=== PATIENT | male | born 1955 | race Caucasian/White ===

== ENCOUNTER → 2017-07-07 | Outpatient (CLI) | payer OTHER ==
[~2017-07-07] MED LIST: CHOL400T55 PO; HYDR25CA84 PO; LACT1CAP12 PO; LAM25 PO; LIS20 PO; LITH600C6 PO; MELA10TA2 PO; MIRT-22 PO; MULT1CAP59 PO; OLAN10TA19 PO; OLAN5TAB27 PO; OMEG-11 PO; QUET100T29 PO; QUET50TA21 PO; TRAZ50 PO
[2017-07-07 12:30] LABS: PLATELET COUNT, AUTOMATED 211 K/uL (150-450)
[2017-07-07 13:18] LABS: LDL CHOLESTEROL 52 mg/dl
== END ==
LOC: LAB 11:56
PROVIDERS: ATTEND Family Medicine
DX: F31.9 Bipolar disorder, unspecified (principal); Z79.899 Other long term (current) drug therapy; R73.01 Impaired fasting glucose
CPT/HCPCS: 36415; 80178; 82040; 82247; 82310; 82374; 82435; 82465; 82565; 82947; 83036; 83718; 84075; 84132; 84155; 84295; 84443; 84450; 84460; 84478; 84520; 85025

== ENCOUNTER → 2017-10-22 | Outpatient (CLI) | payer OTHER ==
[~2017-10-22] MED LIST changes: +FLUT16SP19 NS; +PRAZ1CAP26 PO; +ZOLP-1 PO
[2017-10-22 10:24] LABS: PLATELET COUNT, AUTOMATED 186 K/uL (150-450)
== END ==
LOC: LAB 09:59
PROVIDERS: ATTEND Family Medicine
DX: G31.83 Neurocognitive disorder with Lewy bodies (principal); Z79.899 Other long term (current) drug therapy
CPT/HCPCS: 36415; 80178; 82040; 82247; 82310; 82374; 82435; 82565; 82947; 84075; 84132; 84155; 84295; 84443; 84450; 84460; 84520; 85025

== ENCOUNTER 2017-12-06 14:25 | Emergency (ER) | payer OTHER ==
--- NOTE | 2017-12-06 14:35 | ER Report ---
History and Physical Time Seen By MD: 14:35 Hx. of Stated Complaint: PATIENTS REPORTS THAT HE WAS DIAGNOSED WITH ALZHEIMERS DISEASE IN FEBRUARY 2017. 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 He was sent to the emergency department from urgent care. He presented to urgent care with his who stated that he has had a change in mental status for the past 2 days. She states that he has been increasingly agitated. He has no complaints. He has been perseverating however on his penis. He denies any pain in his penis or testicles. No fever or chills. He has had some medication changes over the past few months. The patient himself has no complaints. Both the patient and his deny any trauma. Remainder of the 14 system rev: Yes Allergies: Coded Allergies: cephalexin (Unverified Allergy, Unknown, rash on legs / fever, 06/24/17) Home Meds Active Scripts Olanzapine (ZYPREXA ZYDIS) 5 Mg Tab.rapdis, 5 MG PO Q1-2H Y for AGITATION for 10 Days, #30 Give 1 tab every 1-2 hours up to 20mg (4 tabs) for aggitation Prov:FLO FLOWER MD 12/06/17 Olanzapine (OLANZAPINE) 5 Mg Tablet, 1 TAB PO QDAY for Anxiety for 90 Days, #90 TAB 4 Refills Prov:ABIMBOLA BAILEY MD 12/02/17 Prazosin Hcl (PRAZOSIN HCL) 1 Mg Capsule, 1-3 MG PO BID for 90 Days, #360 CAPSULE 4 Refills Prov:ABIMBOLA BAILEY MD 12/02/17 [place] Carbonate (LITHIUM CARBONATE) 600 Mg Capsule, 1 CAP PO DAILY for 90 Days , #90 TAB 1 Refill Prov:ABIMBOLA BAILEY MD 11/13/17 Quetiapine Fumarate (SEROQUEL) 100 Mg Tablet, 1-1.5 TAB PO BID for 60 Days, # 150 TAB 3 Refills Prov:ABIMBOLA BAILEY MD 09/30/17 Zolpidem Tartrate (AMBIEN) 5 Mg Tablet, 1 TAB PO QHS Y for SLEEP for 30 Days, # 30 TAB Prov:ABIMBOLA BAILEY MD 09/05/17 Reported Medications [place]-3 Fatty Acids/Fish Oil (FISH OIL 1,000 MG CAPSULE) 1 Each Capsule, 1 EACH PO BID, CAPSULE 07/07/17 Melatonin (MELATONIN) 10 Mg Tablet, 1 TAB PO HS 07/07/17 Multivitamin (MULTIVITAMINS) 1 Each Capsule, 1 CAP PO DAILY 06/24/17 Cholecalciferol (Vitamin D3) (VITAMIN D) 400 Unit Tablet, 1 CAP PO DAILY 06/24/17 Lactobacillus Combo No.11 (PROBIOTIC) 1 Each Cap.sprink, 1 CAPSULE PO BID 06/24/17 Reviewed Nurses Notes: Yes Old Medical Records Reviewed: Yes Hx Smoking: No Smoking Status: Current: Every Day Smoker Hx Substance Use Disorder: No Hx Alcohol Use: Yes Constitutional Vital Sign - Last 24 Hours 12/06/17 12/06/17 14:30 17:11 Temp 98.5 Pulse 83 71 Resp 20 B/P (MAP) 163/97 131/77 (95) Pulse Ox 92 O2 Delivery Room Air Physical Exam General Appearance: The patient is alert, has no immediate need for airway protection and no current signs of toxicity. Eyes: Pupils equal and round no injection. Respiratory: Chest is non tender, lungs are clear to auscultation. Cardiac: regular rate and rhythm Gastrointestinal: Abdomen is soft and non tender, no masses, bowel sounds normal. Neck: Neck is supple and non tender. Extremities have full range of motion and are non tender. Skin: No rashes or lesions. DIFFERENTIAL DIAGNOSIS: After history and physical exam differential diagnosis was considered for infection, intracranial hemorrhage, lithium toxicity, progression of disease Medical Decision Making Data Points Result Diagram: 12/06/17 1456 12/06/17 1456 Laboratory Hematology Test 12/06/17 14:43 12/06/17 14:56 Urine Color Straw Urine Clarity Clear Urine pH 7.0 pH (4.8-9.5) Urine Specific [place] 1.006 Urine Protein Negative mg/dL (NEGATIVE) Urine Glucose (UA) Negative mg/dL (NEGATIVE) Urine Ketones Negative mg/dL (NEGATIVE) Urine Blood Negative (NEGATIVE) Urine Nitrite Negative (NEGATIVE) Urine Bilirubin Negative (NEGATIVE) Urine Urobilinogen Negative mg/dL (0.2-1.9) Urine Leukocyte Esterase Negative (NEGATIVE) Urine RBC None /HPF (0-2/HPF) Urine WBC None /HPF (0-5/HPF) Urine Squamous Epithelial Cells None /LPF (NONE-FEW) Urine Bacteria Negative /HPF (NONE-FEW) Urine Mucus None /HPF (NONE-FEW) Red Blood Count 5.22 M/uL (4.00-5.60) Mean Corpuscular Volume 91.5 fL (80.0-96.0) Mean Corpuscular Hemoglobin 31.8 pg (26.0-33.0) Mean Corpuscular Hemoglobin Concent 34.7 g/dL (32.0-36.0) Red Cell Distribution Width 13.7 % (11.5-14.5) Mean Platelet Volume 7.7 fL (7.2-11.1) Neutrophils (%) (Auto) 73.2 % (39.4-72.5) Lymphocytes (%) (Auto) 13.3 % (17.6-49.6) Monocytes (%) (Auto) 8.8 % (4.1-12.4) Eosinophils (%) (Auto) 4.4 % (0.4-6.7) Basophils (%) (Auto) 0.3 % (0.3-1.4) Nucleated RBC Relative Count (auto) 0.0 /100WBC Neutrophils # (Auto) 7.4 K/uL (2.0-7.4) Lymphocytes # (Auto) 1.3 K/uL (1.3-3.6) Monocytes # (Auto) 0.9 K/uL (0.3-1.0) Eosinophils # (Auto) 0.4 K/uL (0.0-0.5) Basophils # (Auto) 0.0 K/uL (0.0-0.1) Nucleated RBC Absolute Count (auto) 0.00 K/uL Sodium Level 141 mmol/L (137-145) Potassium Level 4.2 mmol/L (3.5-5.0) Chloride Level 101 mmol/L (98-107) Carbon Dioxide Level 27 mmol/L (22-30) Blood Urea Nitrogen 13 mg/dl (9-21) Creatinine 0.90 mg/dl (0.66-1.25) Glomerular Filtration Rate Calc > 60.0 Random Glucose 104 mg/dl (75-110) Calcium Level 9.7 mg/dl (8.4-10.2) Total Bilirubin 0.5 mg/dl (0.2-1.3) Aspartate Amino Transf (AST/SGOT) 29 U/L (0-35) Alanine Aminotransferase (ALT/SGPT) 32 U/L (0-56) Alkaline Phosphatase 52 U/L (0-126) Total Protein 8.0 g/dl (6.3-8.2) Albumin 5.0 g/dl (3.5-5.0) [place] Level 0.4 mmol/L (0.6-1.2) Chemistry Test 12/06/17 14:43 12/06/17 14:56 Urine Color Straw Urine Clarity Clear Urine pH 7.0 pH (4.8-9.5) Urine Specific [place] 1.006 Urine Protein Negative mg/dL (NEGATIVE) Urine Glucose (UA) Negative mg/dL (NEGATIVE) Urine Ketones Negative mg/dL (NEGATIVE) Urine Blood Negative (NEGATIVE) Urine Nitrite Negative (NEGATIVE) Urine Bilirubin Negative (NEGATIVE) Urine Urobilinogen Negative mg/dL (0.2-1.9) Urine Leukocyte Esterase Negative (NEGATIVE) Urine RBC None /HPF (0-2/HPF) Urine WBC None /HPF (0-5/HPF) Urine Squamous Epithelial Cells None /LPF (NONE-FEW) Urine Bacteria Negative /HPF (NONE-FEW) Urine Mucus None /HPF (NONE-FEW) White Blood Count 10.1 k/uL (4.5-11.0) Red Blood Count 5.22 M/uL (4.00-5.60) Hemoglobin 16.6 g/dL (14.0-18.0) Hematocrit 47.8 % (42.0-52.0) Mean Corpuscular Volume 91.5 fL (80.0-96.0) Mean Corpuscular Hemoglobin 31.8 pg (26.0-33.0) Mean Corpuscular Hemoglobin Concent 34.7 g/dL (32.0-36.0) Red Cell Distribution Width 13.7 % (11.5-14.5) Platelet Count 206 K/uL (150-450) Mean Platelet Volume 7.7 fL (7.2-11.1) Neutrophils (%) (Auto) 73.2 % (39.4-72.5) Lymphocytes (%) (Auto) 13.3 % (17.6-49.6) Monocytes (%) (Auto) 8.8 % (4.1-12.4) Eosinophils (%) (Auto) 4.4 % (0.4-6.7) Basophils (%) (Auto) 0.3 % (0.3-1.4) Nucleated RBC Relative Count (auto) 0.0 /100WBC Neutrophils # (Auto) 7.4 K/uL (2.0-7.4) Lymphocytes # (Auto) 1.3 K/uL (1.3-3.6) Monocytes # (Auto) 0.9 K/uL (0.3-1.0) Eosinophils # (Auto) 0.4 K/uL (0.0-0.5) Basophils # (Auto) 0.0 K/uL (0.0-0.1) Nucleated RBC Absolute Count (auto) 0.00 K/uL Glomerular Filtration Rate Calc > 60.0 Calcium Level 9.7 mg/dl (8.4-10.2) Total Bilirubin 0.5 mg/dl (0.2-1.3) Aspartate Amino Transf (AST/SGOT) 29 U/L (0-35) Alanine Aminotransferase (ALT/SGPT) 32 U/L (0-56) Alkaline Phosphatase 52 U/L (0-126) Total Protein 8.0 g/dl (6.3-8.2) Albumin 5.0 g/dl (3.5-5.0) [place] Level 0.4 mmol/L (0.6-1.2) Toxicology Test 12/06/17 14:56 [place] Level 0.4 mmol/L (0.6-1.2) Urinalysis Test 12/06/17 14:43 Urine Color Straw Urine Clarity Clear Urine pH 7.0 pH (4.8-9.5) Urine Specific [place] 1.006 Urine Protein Negative mg/dL (NEGATIVE) Urine Glucose (UA) Negative mg/dL (NEGATIVE) Urine Ketones Negative mg/dL (NEGATIVE) Urine Blood Negative (NEGATIVE) Urine Nitrite Negative (NEGATIVE) Urine Bilirubin Negative (NEGATIVE) Urine Urobilinogen Negative mg/dL (0.2-1.9) Urine Leukocyte Esterase Negative (NEGATIVE) Urine RBC None /HPF (0-2/HPF) Urine WBC None /HPF (0-5/HPF) Urine Squamous Epithelial Cells None /LPF (NONE-FEW) Urine Bacteria Negative /HPF (NONE-FEW) Urine Mucus None /HPF (NONE-FEW) ED Course/Re-evaluation ED Course 62-year-old male with known early dementia since the emergency department with 2 days of agitation and worsening of his baseline symptoms. No evidence of infection. He is otherwise a very pleasant person, however he is pacing around the emergency department and difficult to have him stay in one place. I reviewed Dr. Bailey's clinical notes. I gave an additional 10 mg of Zyprexa and 100 mg of Seroquel in the emergency department. His agitation improved only slightly after the medications. His was concerned about the negative symptoms associated with antipsychotics so I gave him a dose of Atarax to try to further help with the agitation and anxiety. I counseled the patient's to give an additional Atarax tonight before bed if needed. I also counseled her to give another 10 mg of Zyprexa in 5 mg increments tonight if needed. I will contact Dr. Bailey and ask her to follow up with him either tomorrow or Friday. Decision to Disposition Date: Dec 06, 2017 Decision to Disposition Time: 17:05 Depart Departure Latest Vital Signs Vital Signs Date Time Temp Pulse Resp B/P (MAP) Pulse Ox O2 Delivery O2 Flow Rate FiO2 12/06/17 17:11 71 131/77 (95) 12/06/17 14:30 98.5 20 92 Room Air Impression: Primary Impression: Altered mental status Condition: Improved Disposition: HOME OR SELF-CARE Referrals: ABIMBOLA BAILEY MD (PCP) New Scripts Olanzapine (ZYPREXA ZYDIS) 5 Mg Tab.rapdis 5 MG PO Q1-2H Y for AGITATION for 10 Days, #30 Give 1 tab every 1-2 hours up to 20mg (4 tabs) for aggitation Prov: FLO FLOWER MD 12/06/17 Additional Instructions: Follow the instructions on the Zyprexa prescription. For tonight's dose, you can give an additional 10 mg at 5 mg increments. If agitation persists give one 5 mg tablet and another 5 mg tablet one hour later if agitation persists. You can also give 1 25 mg Atarax tonight if needed and another one in the morning. I will speak with Dr. Bailey about follow-up on Friday. Problem Qualifiers Primary Impression: Altered mental status Altered mental status type: unspecified Qualified Codes: R41.82 - Altered mental status, unspecified FLO FLOWER MD Dec 06, 2017 14:35
[2017-12-06 15:07] LABS: PLATELET COUNT, AUTOMATED 206 K/uL (150-450)
[2017-12-06] MEDS ORDERED: QUEtiapine FUM 100 MG TAB PO ONE (15:25)
[2017-12-06] MEDS ORDERED: OLANZapine ZYDIS ODT 5MG TABDP PO ONE ×2 (15:25→16:05)
[2017-12-06] MEDS ORDERED: hydrOXYzine 25 MG TAB PO ONE (16:45)
[2017-12-06] MEDS ORDERED: hydrOXYzine 25 MG TAB TH 2 TAB/BOTTLE PO ONE (17:05)
[2017-12-06] MEDS ORDERED: OLAN5TAB26 PO (17:10)
[2017-12-06 17:11] VITALS: BP 131/77
== END 2017-12-06 17:21 | disposition home or self-care (01) ==
LOC: ER 14:38
DX: R41.82 Altered mental status, unspecified (principal); Z79.899 Other long term (current) drug therapy; F17.200 Nicotine dependence, unspecified, uncomplicated
CPT/HCPCS: 36415; 80178; 81001; 82040; 82247; 82310; 82374; 82435; 82565; 82947; 84075; 84132; 84155; 84295; 84450; 84460; 84520; 85025; 99283

== ENCOUNTER → 2018-04-01 | Outpatient (CLI) | payer OTHER ==
[~2018-04-01] MED LIST changes: +FLU60VIA41 IM; +LAMO100T52 PO; +LAMO25TA64 PO; +OLAN10TA25 PO; +OLAN5TAB26 PO; +[UNRECOGNIZED DRUG - CODE] TP
[2018-04-01 15:03] LABS: PLATELET COUNT, AUTOMATED 188 K/uL (150-450)
== END ==
LOC: LAB 14:34
PROVIDERS: ATTEND Family Medicine
DX: Z79.899 Other long term (current) drug therapy (principal)
CPT/HCPCS: 36415; 82040; 82247; 82310; 82374; 82435; 82565; 82947; 84075; 84132; 84155; 84295; 84443; 84450; 84460; 84520; 85025

== ENCOUNTER → 2018-09-24 | Outpatient (CLI) | payer OTHER ==
[~2018-09-24] MED LIST changes: +QUET25TA PO; +QUET50TA PO; +SUVO5TAB PO; +TRAZ100T31 PO; +TRAZ50TA34 PO
[2018-09-24 17:13] LABS: PLATELET COUNT, AUTOMATED 202 K/uL (150-450)
== END ==
LOC: LAB 17:02
PROVIDERS: ATTEND Family Medicine
DX: Z79.899 Other long term (current) drug therapy (principal)
CPT/HCPCS: 36415; 82040; 82247; 82310; 82374; 82435; 82565; 82947; 84075; 84132; 84155; 84295; 84450; 84460; 84520; 85025